=== PATIENT | female | born 1985 | race Caucasian/White ===

== ENCOUNTER 2019-03-17 06:15 | Inpatient (IN) | payer OTHER ==
[2019-03-17 07:41] VITALS: BMI 30.6
[2019-03-17] MEDS: ELECTROLYTE-148 SOLN 1,000 ML IV SCH (08:00)
[2019-03-17] MEDS ORDERED: morphine SULFATE/PF 0.5 MG/ML (2cc Syringe - QUVA) ONE (08:06)
[2019-03-17] MEDS ORDERED: PHENYLEPHRINE HCL 10 MG/1 ML SINGLE DOSE VIAL ONE (08:15)
[2019-03-17] MEDS ORDERED: KETOROLAC TROMETHAMINE 30 MG/1 ML VIAL ONE (08:15)
[2019-03-17] MEDS ORDERED: ceFAZolin SODIUM 1 GM VIAL ONE (08:30)
[2019-03-17] MEDS ORDERED: morphine SULFATE/PF 0.5 MG/ML (2cc Syringe - QUVA) IT ONE (08:32)
[2019-03-17] MEDS: OXYTOCIN 20 UNITS in 0.9% NS 20 UNIT/1,000 ML INFUS.BAG IV SCH (08:50)
[2019-03-17] MEDS ORDERED: OXYTOCIN 20 UNITS in 0.9% NS 20 UNIT/1,000 ML INFUS.BAG IV ONE (09:18)
[2019-03-17] MEDS ORDERED: ONDANSETRON 4 MG/2 ML VIAL IVPUSH PRN (09:50)
[2019-03-17] MEDS ORDERED: ACETAMINOPHEN 1000 MG/100 ML VIAL (NON FORMULARY) IVPB ONE (09:53)
[2019-03-17] MEDS ORDERED: ELECTROLYTE-148 SOLN 500 ML IV ONE (09:58)
[2019-03-17] MEDS ORDERED: CITRIC ACID/SODIUM CITRATE 30 ML UNIT-DOSE CUP PO ONE (09:58)
--- NOTE | 2019-03-17 10:04 | HP ---
Past Medical History - Admission Chief Complaint: request c section History of Present Illness: anxiety, depression History Source: Patient Limitations to Obtaining History: No Limitations - Past Medical History TOPPIECE CUTTER: No: Alzheimer's, CVA, Dementia, Migraine, Multiple Sclerosis, Peripheral Neuropathy, Parkinson's, Seizure, Syncope, TIA, Vertigo, Other Cardiovascular: No: AFIB, Aneurysm, Aortic Insufficiency, Aortic Stenosis, CAD, CHF, Deep Vein Thrombosis, HTN, Hyperlipdemia, NV, Mitral Insufficiency, Mitral Stenosis, Murmur, Pulmonary Hypertension, Other Pulmonary: No: Asthma, Bronchitis, Cancer, COPD, O2 Dependent, Pneumonia, Previously Intubated, Pulmonary Embolus, Pulmonary Fibrosis, Sleep Apnea, Other Gastrointestinal: No: Ascites, Cancer, Constipation, Crohn's Disease, Diverticulitis, Diverticulosis, Esophageal Varices, Gastritis, GERD, GI Bleed, Hemorrhoids, Hiatal Hernia, Inflamatory Bowel Disease, Irritable Bowel Disease, Pancreatitis, Peptic Ulcer Disease, Ulcerative Colitis, Other Hepatobiliary: No: Cirrhosis, Cholelithiasis, Cholecystitis, Choledocholithiasis , Hepatitis A, Hepatitis B, Hepatitis C, Other Renal/: No: Renal Failure, Renal Inusuff, BPH, Cancer, Hematuria, Hemodialysis , Neurogenic Bladder, Renal Calculi, UTI, Other Reproductive: No: Ectopic , Endometriosis, Fibroids, PID, Polycystic Ovary Syndrome, Postmenopausal, Other ...: 1 ...Para: 0 ...Term: 0 ...: 0 ...Spon : 0 ...Induced : 0 ...Multiple Gestation: 0 ... Weeks Gestation by Dates: 39 ...EDC by Jameson: 03/24/19 Heme/Onc: No: Anemia, B12 Deficiency, Bleeding Disorder, Cancer, Current Chemotherapy, Current Radiation Therapy, Hemochromatosis, Hypercoaguable State, Myeloproliferative Synd, Sickle Cell Disease, Sickle Cell Trait, Thrombocytopenia, Other Infectious Disease: No: AIDS, C-Diff, Herpes Zoster, HIV, MRSA, STD's, Tuberculosis, VREF, Other Psych: Yes: Anxiety, Depression Musculoskeletal: No: Bursitis, Chronic low back pain, Hemiparesis, Hemiplegia, Osteoarthritis, Paraplegia, Other Rheumatology: No: Fibromyalgia, Gout, Lupus, Rheumatoid Arthritis, Sarcoidosis, Vasculitis, Other ENT: No: Allergic Rhinitis, Sinusitis, Other Endocrine: No: Harding's Disease, Kasia's Disease, Diabetes Insipidus, Diabetes Mellitus, Hyperparathyroidism, Hyperthyroidism, Hypothyroidism, Osteopenia, SIADH, Other Dermatology: No: Basal Cell, Cellulitis, Eczema, Melanoma, Psoriasis, Squamous Cell, Other - Past Surgical History Past Surgical History: Yes: AV Fistula/Graft Hx Myomectomy: No Hx Transabdominal Cerclage: No - Advance Directives Advance Directives: Yes: Living Will - Smoking History Smoking history: Never smoked Have you smoked in the past 12 months: No - Alcohol/Substance Use Hx Alcohol Use: No History of Substance Use: reports: None - Social History Usual Living Arrangement: Yes: With Significant Other Do you think of yourself as: Straight/Heterosexual ADL: Independent History of Recent Travel: No Home Medications - Allergies Allergies/Adverse Reactions: Allergies Allergy/AdvReac Type Severity Reaction Status Date / Time No Known Allergies Allergy Verified 03/17/19 07:21 - Home Medications Home Medications: Ambulatory Orders Clonazepam [Klonopin] 2 mg PO HS 03/17/19 Tablet 1 tab PO DAILY 03/17/19 Family Medical History Family History: Denies Review of Systems - Review of Systems Constitutional: reports: No Symptoms Eyes: reports: No Symptoms HENT: reports: No Symptoms Neck: reports: No Symptoms Cardiovascular: reports: No Symptoms Respiratory: reports: No Symptoms Gastrointestinal: reports: No Symptoms Genitourinary: reports: No Symptoms Breasts: reports: No Symptoms Reported Musculoskeletal: reports: No Symptoms Integumentary: reports: No Symptoms Neurological: reports: No Symptoms Endocrine: reports: No Symptoms Hematology/Lymphatic: reports: No Symptoms Psychiatric: reports: No Symptoms Physical Exam - Maternity Vital Signs: Vital Signs Temperature 98.2 F 03/17/19 07:35 Pulse Rate 84 03/17/19 07:35 Respiratory Rate 17 03/17/19 07:35 Blood Pressure 104/70 03/17/19 07:35 O2 Sat by Pulse Oximetry (%) Constitutional: Yes: Well Nourished, No Distress, Calm Eyes: Yes: WNL, Conjunctiva Clear, EOM Intact HENT: Yes: WNL, Atraumatic, Normocephalic Neck: Yes: WNL, Supple, Trachea Midline Cardiovascular: Yes: WNL, Regular Rate and Rhythm Lungs: Clear to auscultation Breast(s): Yes: WNL - Abdominal Exam/OB Fundal Height: 38 Number of Fetuses: Single Presentation: Vertex Contractions: Yes Regularity: Irregular Intensity: Mild Monitor Mode: External Heart Rate Location: [facility] Category: I Accelerations: Uniform Decelerations: None - Vaginal Exam/OB Vaginal Bleediing: No Speculum Exam: No Dilatation (cm): 1 Effacement (%): 20 Amniotic Membrane Status: Intact Presentation: Vertex/Position Station: -2 - Physical Exam Musculoskeletal: Yes: WNL Extremities: Yes: WNL Edema: Yes Edema: LUE: 1+, RUE: 1+, LLE: 1+, RLE: 1+ Integumentary: Yes: WNL Deep Tendon Reflex Grade: Normal +2 ...Motor Strength: WNL Psychiatric: Yes: WNL, Alert, Oriented Assessment/Plan for c section as per pt requests, pt has anxiety, panic and depression
[2019-03-17] MEDS ORDERED: METHYLERGONOVINE MALEATE 0.2 MG/1 ML AMP IM PRN (10:06)
[2019-03-17] MEDS ORDERED: SENNOSIDES/DOCUSATE COMBO (SENNA PLUS) TABLET (UD) PO PRN (10:06)
--- NOTE | 2019-03-17 10:06 | OP ---
Operative Note - Note: Operative Date: 03/17/19 Pre-Operative Diagnosis: pt requests, anxiety, depression Operation: primary lt c s Findings: skin graft Post-Operative Diagnosis: Same as Pre-op Surgeon: Davonte Bacon Services Program Manager: Jeremie Hood Anesthesia: Spinal Estimated Blood Loss (mls): 500 Operative Report Dictated: Yes
[2019-03-17] MEDS ORDERED: ACETAMINOPHEN INJECTION 100 ML IVPB ONE (11:04)
[2019-03-17] MEDS: IBUPROFEN 800 MG/8 ML IJ IVPB PRN ×2 (15:10→22:59)
--- NOTE | 2019-03-17 17:31 | OP ---
DATE OF OPERATION: 03/17/2019 PREOPERATIVE DIAGNOSIS: Patient request, anxiety attack, depression, and panic attack. POSTOPERATIVE DIAGNOSIS: Patient request, anxiety attack, depression, and panic attack. PROCEDURE: Primary low transverse section and bilateral tubal ligation. SURGEON: Davonte Bacon MD APARTMENT ASSISTANT MANAGER: ENRIQUE Alvarado ANESTHESIOLOGIST: Owen Renae MD, spinal anesthesia. INDICATIONS: This is a 33-year-old female patient with a history of depression, anxiety attack, and panic attack. Patient had taken Klonopin and Paxil before the . Patient has been consulted extensively during the to decrease the Klonopin medication. Patient tried, and the patient could not get off the Klonopin, and the patient has been persistently taking Klonopin throughout the , so the frame catcher was instructed about the Klonopin taking so we would be watching the baby's withdrawal symptoms. Patient agrees, patient understands. Patient does not want to go through labor because the patient is Thai culture, and she believes in C section, and she does not want to go through panic attack with a vaginal delivery with panic pushing and pain status. Patient understood. Patient is 33 years old. Patient, after extensive counseling, does not want any more children. Patient insists on bilateral tubal ligation. Patient declines any other methods of family planning, no control pills, no IUD, not any other methods. Patient has been translated by Tanzanian because the patient is Thai. After extensive counseling with the translators, the patient is still insisting on tubal ligation. DESCRIPTION OF PROCEDURE: Patient was taken to OR today, 39 weeks. Patient is taken to OR for primary low transverse section. Patient was placed on the operating table in supine position. After the spinal anesthesia was obtained, the patient's abdomen and pelvis were prepped and draped in the usual sterile manner. Pfannenstiel incision was made. Incision was made through the skin and subcutaneous incision, and then the fascia was nicked in the midline. The fascia extended bilaterally. Intraperitoneal cavity was entered. Bladder flap was created. Low transverse segment of uterus was entered. Baby was delivered in ENRIKE position. Baby was handed over to chemical plant worker after umbilical cord doubly clamped and cut. Cord gas obtained. Placenta was removed. Uterus was closed in single layer. First, interlocking Vicryl sutures. Good hemostasis. Both gutters were cleaned. Both ovaries, fallopian tubes, uterus were within normal limits. Uterus closed in single layer. Bladder flap was closed. No complications. Patient tolerated the procedure well. Both fallopian tubes were grasped with Judy, doubly transected, and suture ligated. Good hemostasis. Both gutters were coagulated with Bovie, and the 2nd tube was sent to Pathology. No complications. Tolerated procedure well. Both ovaries, fallopian tubes within normal limits. Peritoneum closed. Fascia was closed. Blood loss about 500 mL. Draining clear urine. Transferred to recovery room in stable condition. MD LEO ARRIAGA/[id number]
[2019-03-17] MEDS ORDERED: clonazePAM 2 MG TABLET PO ONE (21:00)
[2019-03-17] MEDS ORDERED: clonazePAM 0.5 MG TABLET PO ONE (22:45)
[2019-03-18 08:08] LABS: BASO % 0.3 % (0-2.0); EOS % 0.5 % (0-4.5); HEMATOCRIT 41.2 % (32.4-45.2); LYMPH % 9.5 % (8-40); MCHC 33.9 g/dl (32.0-36.0); MEAN CELL VOLUME 97.4 fl (80-96); MEAN PLT VOLUME 9.3 fl (7.5-11.1); MONO % 5.4 % (3.8-10.2); NEUT % 84.3 % (42.8-82.8); PLATELET COUNT 207 K/MM3 (134-434); RBC 4.23 M/mm3 (3.60-5.2); RDW 12.9 % (11.6-15.6); WHITE BLOOD COUNT 11.7 K/mm3 (4.0-10.0)
[2019-03-18] MEDS: SIMETHICONE 80 MG TAB.CHEW (FP) PO PRN ×3 (08:30→21:35)
[2019-03-18] MEDS: IBUPROFEN 600 MG TABLET (FP) PO PRN ×3 (08:30→21:34)
[2019-03-18] MEDS: oxyCODONE HCL 5 MG TABLET PO PRN ×3 (08:31→21:54)
--- NOTE | 2019-03-18 09:10 | PN ---
Progress Note (short form) - Note Progress Note: 33F POD#1 for repeat with spinal anesthesia. Pt. doing well this am. No apparent anesthesia related complications. Continue management per primary team.
[2019-03-18] MEDS: ENOXAPARIN NA (PORCINE) 40 MG/0.4 ML DISP.SYRIN SQ SCH (09:55)
[2019-03-18] MEDS ORDERED: FLU VACC QS2019-20(6MOS UP)/PF 60 MCG/0.5 ML SYRINGE IM ONE (10:00)
[2019-03-18] MEDS ORDERED: FLU VACCINE QUAD 60 MCG/0.5 ML (MDV 19-20) IM ONE (10:00)
[2019-03-18] MEDS ORDERED: BISACODYL 10 MG SUPP.RECT RC PRN (10:06)
--- NOTE | 2019-03-18 10:45 | PN ---
Post Progress Note Post Day: 1 Type of Delivery: Primary C/S Vital Signs: Vital Signs Temperature 98.2 F 03/18/19 09:00 Pulse Rate 71 03/18/19 09:00 Respiratory Rate 18 03/18/19 09:00 Blood Pressure 104/68 03/18/19 09:00 O2 Sat by Pulse Oximetry (%) 99 03/17/19 12:24 Breast Exam: Yes: Soft Uterus: Yes: Fundus Firm, Fundus below umbilicus Incision: Yes: Dressing dry and intact, Sutures intact Abdomen/GI: Yes: Abdomen soft, Passing flatus, Tolerating PO Lochia: Yes: Serosa Lochia, amount: Small Extremities: Yes: Calves non-tender Perineum: Yes: Intact Activity: Ambulating - Labs Labs: CBC WBC 11.7 K/mm3 (4.0-10.0) H 03/18/19 06:47 RBC 4.23 M/mm3 (3.60-5.2) 03/18/19 06:47 Hgb 14.0 GM/dL (10.7-15.3) 03/18/19 06:47 Hct 41.2 % (32.4-45.2) 03/18/19 06:47 MCV 97.4 fl (80-96) H 03/18/19 06:47 MCH 33.0 pg (25.7-33.7) 03/18/19 06:47 MCHC 33.9 g/dl (32.0-36.0) 03/18/19 06:47 RDW 12.9 % (11.6-15.6) 03/18/19 06:47 Plt Count 207 K/MM3 (134-434) 03/18/19 06:47 MPV 9.3 fl (7.5-11.1) 03/18/19 06:47 Absolute Neuts (auto) 9.8 K/mm3 (1.5-8.0) H 03/18/19 06:47 Neutrophils % 84.3 % (42.8-82.8) H 03/18/19 06:47 Lymphocytes % 9.5 % (8-40) 03/18/19 06:47 Monocytes % 5.4 % (3.8-10.2) 03/18/19 06:47 Eosinophils % 0.5 % (0-4.5) 03/18/19 06:47 Basophils % 0.3 % (0-2.0) 03/18/19 06:47 Nucleated RBC % 0 % (0-0) 03/18/19 06:47 Other Findings, Remarks: doing well
--- NOTE | 2019-03-18 11:23 | CON.PSY ---
Psychiatry Consult Chief Complaint: 33 Myri[place] old female s/p C section, seen for Psych eval. Patient had been given Klonapin by her electrolog operator for anxiety and panic Diosrder . No reports of Depression or self damaging behaviour. Bonding with baby well, has a significant relationship. Symptoms: reports: Anxiety - Previous Psychiatric Treatment Outpatient: None Inpatient: None - Previous Substance Abuse Treatment Outpatient: None Inpatient: None - Current Medications Current Medications: Active Medications Acetaminophen (Tylenol -) 650 mg PO Q4H PRN PRN Reason: FEVER Bisacodyl (Dulcolax Suppository -) 10 mg RC PRN PRN PRN Reason: CONSTIPATION Clonazepam (Klonopin -) 2 mg PO ONCE [facility] Stop: 03/19/19 20:59 Diphenhydramine HCl (Benadryl Injection -) 25 mg IVPUSH Q4H PRN PRN Reason: Pruritis Last Admin: 03/18/19 01:46 Dose: 25 mg Enoxaparin Sodium (Lovenox -) 40 mg SQ DAILY [facility] Last Admin: 03/18/19 09:55 Dose: 40 mg Fentanyl (Sublimaze Injection -) 25 mcg IVPUSH [id number] PRN PRN Reason: PAIN-PACU ORDER X 4 DOSES ONLY Lactated Ringer's (Lactated Ringers Solution) 1,000 mls @ 125 mls/hr IV ASDIR [facility] Parenteral Electrolytes (Plasma-Lyte 148 -) 1,000 mls @ 125 mls/hr IV ASDIR [facility] Last Admin: 03/17/19 08:00 Dose: 125 mls/hr Oxytocin/Sodium Chloride (Normal Saline+20 Units Oxytocin -) 20 unit in 1,000 mls @ 125 mls/hr IV ASDIR [facility] Last Admin: 03/17/19 08:50 Dose: 125 mls/hr Ibuprofen (Motrin -) 600 mg PO Q4H PRN PRN Reason: PAIN LEVEL 1 - 3 Last Admin: 03/18/19 08:30 Dose: 600 mg Ibuprofen (Caldolor Injection -) 800 mg IVPB Q8H PRN PRN Reason: PAIN LEVEL 6-10 Last Admin: 03/17/19 22:59 Dose: 800 mg Methylergonovine Maleate (Methergine Injection -) 0.2 mg IM Q4H PRN PRN Reason: Excessive Bleeding (L&D) Ondansetron HCl (Zofran Injection) 4 mg IVPUSH Q4H PRN PRN Reason: NAUSEA Oxycodone HCl (Roxicodone -) 5 mg PO Q4H PRN PRN Reason: PAIN LEVEL 4 - 6 Oxycodone HCl (Roxicodone -) 10 mg PO Q4H PRN PRN Reason: PAIN LEVEL 7 - 10 Last Admin: 03/18/19 08:31 Dose: 10 mg Senna/Docusate Sodium (Pericolace -) 2 tablet PO HS PRN PRN Reason: CONSTIPATION Simethicone (Mylicon -) 80 mg PO Q4H PRN PRN Reason: GAS Last Admin: 03/18/19 08:30 Dose: 80 mg - Allergies Allergies: Allergies Allergy/AdvReac Type Severity Reaction Status Date / Time No Known Allergies Allergy Verified 03/17/19 07:21 - Current Living Status Usual Living Arrangement: With Spouse - Current Mental Status Evaluation Appearance: Well Groomed Attitude: Cooperative - Affect Affect: Full Range Appropriateness: Appropriate to Content - Mood Mood: Euthymic - Speech/Language Expressive: Coherent - Psychomotor Activity Psychomotor Activity: Normal - Thought Process Thought Process: Intact - Thought Content Hallucinations: Absent Delusions: Absent - Self Perception Self Perception: No Impairment - Cognition Attention: Alert Orientation: Time Memory, Immediate Recall: Intact Memory, Short Term: 3/3 Memory, Remote with Promptin/3 - Concentration Serial Sevens Intact: Yes Simple Calculations Intact: Yes - Abstraction Proverb Interpretation: Intact Judgement: Intact - Insight Insight: Intact - Impulse Control Impulse Control: Good Control - Suicidal Ideation Suicidal Ideation: No - Homicidal Ideation Homicidal Ideation: No Assessment/Plan 1) No need for any more Psych meds. 2) Patient is Psychiatrically stable, can be discharged Home when medically stable.
[2019-03-18] MEDS: ELECTROLYTE-148 SOLN 1,000 ML IV SCH (20:35)
[2019-03-18] MEDS: OXYTOCIN 20 UNITS in 0.9% NS 20 UNIT/1,000 ML INFUS.BAG IV SCH (20:35)
[2019-03-18] MEDS: LACTATED RINGERS SOLUTION 1,000 ML IV SCH (20:36)
[2019-03-18] MEDS ORDERED: clonazePAM 2 MG TABLET PO SCH (21:00)
[2019-03-18] MEDS ORDERED: clonazePAM 0.5 MG TABLET PO ONE ×2 (21:00→21:45)
[2019-03-18] MEDS: ACETAMINOPHEN 325 MG TABLET (FP) PO PRN (21:35)
[2019-03-19] MEDS: oxyCODONE HCL 5 MG TABLET PO PRN ×2 (09:05→16:30)
[2019-03-19] MEDS: IBUPROFEN 600 MG TABLET (FP) PO PRN ×2 (09:05→16:29)
[2019-03-19] MEDS: ENOXAPARIN NA (PORCINE) 40 MG/0.4 ML DISP.SYRIN SQ SCH (09:33)
[2019-03-19] MEDS: ACETAMINOPHEN 325 MG TABLET (FP) PO PRN (16:31)
[2019-03-20] MEDS: IBUPROFEN 600 MG TABLET (FP) PO PRN ×2 (02:47→07:41)
[2019-03-20] MEDS: SIMETHICONE 80 MG TAB.CHEW (FP) PO PRN (02:47)
[2019-03-20] MEDS: oxyCODONE HCL 5 MG TABLET PO PRN (02:48)
[2019-03-20] MEDS: ACETAMINOPHEN 325 MG TABLET (FP) PO PRN (07:40)
[2019-03-20 07:43] LABS: BASO % 0.3 % (0-2.0); EOS % 0.9 % (0-4.5); HEMATOCRIT 37.1 % (32.4-45.2); HEMOGLOBIN 12.9 GM/dL (10.7-15.3); LYMPH % 19.3 % (8-40); MCH 33.6 pg (25.7-33.7); MCHC 34.9 g/dl (32.0-36.0); MEAN CELL VOLUME 96.5 fl (80-96); MEAN PLT VOLUME 8.8 fl (7.5-11.1); MONO % 9.4 % (3.8-10.2); NEUT % 70.1 % (42.8-82.8); PLATELET COUNT 230 K/MM3 (134-434); RBC 3.84 M/mm3 (3.60-5.2); RDW 13.1 % (11.6-15.6); WHITE BLOOD COUNT 7.8 K/mm3 (4.0-10.0)
[2019-03-20 08:45] VITALS: BP 115/56; PULSE 70; TEMP 98.1
--- NOTE | 2019-03-20 08:46 | PN ---
Post Progress Note Post Day: 3 Type of Delivery: Primary C/S Vital Signs: Vital Signs Temperature 97.9 F 03/19/19 21:40 Pulse Rate 80 03/19/19 21:40 Respiratory Rate 18 03/19/19 21:40 Blood Pressure 99/43 L 03/19/19 21:40 O2 Sat by Pulse Oximetry (%) 99 03/17/19 12:24 Breast Exam: Yes: Soft Uterus: Yes: Fundus Firm, Fundus below umbilicus Incision: Yes: Dressing dry and intact, Sutures intact Abdomen/GI: Yes: Abdomen soft, Passing flatus, Tolerating PO Lochia: Yes: Serosa Lochia, amount: Small Extremities: Yes: Calves non-tender Perineum: Yes: Intact Activity: Ambulating - Labs Labs: CBC WBC 7.8 K/mm3 (4.0-10.0) 03/20/19 07:07 RBC 3.84 M/mm3 (3.60-5.2) 03/20/19 07:07 Hgb 12.9 GM/dL (10.7-15.3) 03/20/19 07:07 Hct 37.1 % (32.4-45.2) 03/20/19 07:07 MCV 96.5 fl (80-96) H 03/20/19 07:07 MCH 33.6 pg (25.7-33.7) 03/20/19 07:07 MCHC 34.9 g/dl (32.0-36.0) 03/20/19 07:07 RDW 13.1 % (11.6-15.6) 03/20/19 07:07 Plt Count 230 K/MM3 (134-434) 03/20/19 07:07 MPV 8.8 fl (7.5-11.1) 03/20/19 07:07 Absolute Neuts (auto) 5.5 K/mm3 (1.5-8.0) 03/20/19 07:07 Neutrophils % 70.1 % (42.8-82.8) 03/20/19 07:07 Lymphocytes % 19.3 % (8-40) D 03/20/19 07:07 Monocytes % 9.4 % (3.8-10.2) 03/20/19 07:07 Eosinophils % 0.9 % (0-4.5) 03/20/19 07:07 Basophils % 0.3 % (0-2.0) 03/20/19 07:07 Nucleated RBC % 0 % (0-0) 03/20/19 07:07 Assessment/Plan dc pt home today
--- NOTE | 2019-03-20 08:50 | DS ---
Physical Exam-MANAGER BODY Vital Signs: Vital Signs Temperature 98.1 F 03/20/19 08:44 Pulse Rate 70 03/20/19 08:44 Respiratory Rate 20 03/20/19 08:44 Blood Pressure 115/56 L 03/20/19 08:44 O2 Sat by Pulse Oximetry (%) 99 03/17/19 12:24 Constitutional: Yes: Well Nourished, No Distress, Calm Eyes: Yes: WNL, Conjunctiva Clear, EOM Intact HENT: Yes: WNL, Atraumatic, Normocephalic Neck: Yes: WNL, Supple, Trachea Midline Cardiovascular: Yes: WNL, Regular Rate and Rhythm Respiratory: Yes: WNL, Regular, CTA Bilaterally Gastrointestinal: Yes: WNL, Normal Bowel Sounds, Soft ...Rectal Exam: Yes: WNL Renal/: Yes: WNL Pelvis: Yes: WNL External Genitalia: Yes: Normal Internal Exam Deferred: No Vaginal Exam: Yes: Normal Cervix: Yes: Normal Uterus: Yes: Normal Adnexa: Normal: Bilateral ....Post : Yes: Uterus firm, Uterus non-tender Breast(s): Yes: WNL Musculoskeletal: Yes: WNL Extremities: Yes: WNL Edema: Yes Edema: LUE: 1+, RUE: 1+, LLE: 1+, RLE: 1+ Integumentary: Yes: WNL Wound/Incision: Yes: Clean/Dry, Well Approximated Neurological: Yes: WNL, Alert, Oriented ...Motor Strength: WNL Psychiatric: Yes: WNL, Alert, Oriented Labs: CBC, BMP 03/20/19 07:07 Delivery - Delivery Type of Anesthesia: Spinal EBL (cc): 500 Delivery, Single - Stages of Labor Date of Delivery: 03/17/19 Time of Delivery: 08:47 Time Placenta Delivered: 08:49 - Condition of Supervisor [place]/Shower Screen Installer Present: Yes Name: Dheeraj Mascorro Gender: Female Weight: 2.58 kg Position: Left, OA Total Hours ROM (Hrs/Mins): 1 minute - 1 Minute Total Score: 9 5 Minutes Total Score: 9 - [place] Feeding Plan Initial Plan: Elected not to breastfeed exclusively throughout hospitalization Discharge Summary Problems reviewed: Yes Reason For Visit: SCHEDULED Procedures: Principal: primary lt c s Other Procedures: btl Hospital Course: uneventful Health Concerns: none Plan of Treatment: oob as much as possible Goals: return to work in 8 weeks Condition: Good - Instructions Diet, Activity, Other Instructions: regular , routine post c section instructions Disposition: HOME - Home Medications Comprehensive Discharge Medication List: Ambulatory Orders Clonazepam [Klonopin] 2 mg PO HS 03/17/19 Tablet 1 tab PO DAILY 03/17/19 alfredo lyons Prescription Drug Monitoring Program (I-STOP) results: I-STOP reviewed and no issues identified
[2019-03-20] MEDS: ENOXAPARIN NA (PORCINE) 40 MG/0.4 ML DISP.SYRIN SQ SCH (09:13)
--- NOTE | 2019-03-24 17:27 | PATH ---
Surgical Pathology Report Patient Name: SIMEON SHARMA [facility]. Rec. #: [id number] /Age/Gender: 1985 (Age: 33) / F Account: [id number] Location: [facility] OBS/MEDICAL OFFICE RECEPTIONIST Taken: 03/17/2019 Received: 03/18/2019 Reported: 03/24/2019 Physicians: Davonte Bacon MD Specimen(s) Received A: PLACENTA B: RIGHT PARTIAL FALLOPIAN TUBE C: LEFT PARTIAL FALLOPIAN TUBE Clinical History , 39 weeks, primary elective, history of depression, breast augmentation 2017, thyroid nodules Final Diagnosis A. PLACENTA, SECTION: 465 G THIRD TRIMESTER PLACENTA WITH TRIVASCULAR UMBILICAL CORD AND UNREMARKABLE PLACENTAL MEMBRANES. B. PARTIAL FALLOPIAN TUBE, RIGHT, EXCISION: FALLOPIAN TUBE WITH PARATUBAL CYST AND FULL LUMINAL PORTION. C. PARTIAL FALLOPIAN TUBE, LEFT, EXCISION: FULL LUMINAL PORTION OF UNREMARKABLE FALLOPIAN TUBE. Electronically Signed Aurea Pereira M.D. Gross Description A. The specimen is received fresh labeled placenta and is a 465 gram, 20.0 x 17.0 x 3.5 cm. placenta with attached membranes and umbilical cord. The attached membranes are velasco, translucent with focal opacities and insert marginally. The umbilical cord measures 21 cm. in length and averages 1.3 cm. in diameter. The cord inserts eccentrically, 4 cm. to the nearest margin. No true knots or strictures are identified. Cut surface of the umbilical cord reveals 3 vessels. The surface is rojo-blue with minimal fibrin deposition and appropriate caliber vessels. The maternal surface is red-brown with focal defects. Sectioning reveals red-brown, spongy parenchyma. No lesions are identified. Inspection And Testing Supervisor sections are submitted in three cassettes as follows: 1- membrane rolls and umbilical cord; 2-3- full thickness sections of placenta. B. Received in formalin labeled "portion of right fallopian tube," is a 1.2 cm in length portion of fallopian tube. No fimbria are present. The outer surface is velasco-gonzáles and smooth. Sectioning reveals an unremarkable lumen. Inspection And Testing Supervisor sections are submitted in one cassette. C. Received in formalin labeled "partial left fallopian tube," is a 1.3 cm in length portion of fallopian tube. No fimbria are present. The outer surface is velasco-gonzáles and smooth. Sectioning reveals an unremarkable lumen. Inspection And Testing Supervisor sections are submitted in one cassette. 03/23/2019 [facility]03/23/2019
== END 2019-03-20 11:15 | disposition home or self-care (01) | DRG 540 ==
LOC: JLDR 06:15 → J3W 11:47
PROVIDERS: ADMIT Obstetrics & Gynecology; ATTEND Obstetrics & Gynecology
PROC: 10D00Z1 Extraction of Products of Conception, Low, Open Approach (ICD-10-PCS; principal; 2019-03-17)
PROC: 0UB70ZZ Excision of Bilateral Fallopian Tubes, Open Approach (ICD-10-PCS; 2019-03-17)
DX: O82 Encounter for cesarean delivery without indication (principal); Z3A.39 39 weeks gestation of pregnancy; O99.344 Other mental disorders complicating childbirth; F41.8 Other specified anxiety disorders; Z37.0 Single live birth; F41.0 Panic disorder [episodic paroxysmal anxiety]; Z30.2 Encounter for sterilization
CPT/HCPCS: 36415; 80053; 85025; 85027; 85610; 85730; 86593; 86850; 86900; 86901; 88302-TC; 88307-TC; 90686; J0131